=== PATIENT | female | born 1990 | race Caucasian/White ===

== ENCOUNTER 2017-01-07 07:47 | Emergency (ER) | payer OTHER ==
[2017-01-07 08:07] VITALS: BP 117/77
--- NOTE | 2017-01-07 08:16 | UC ---
Throat Pain/Nasal Marcos HPI - HPI Summary HPI Summary: SINUS PAIN AND PRESSURE X 1 WEEK , + NASAL CONGESTION , PND, GREEN NASAL DISCHARGE, LEFT EAR PAIN NO FEVER, NO CHILLS, NO COUGH - History of Current Complaint Chief Complaint: UCRespiratory Stated Complaint: SINUS,EAR PAIN Time Seen by Provider: 01/07/17 08:09 Hx Obtained From: Patient Hx Last Menstrual Period: unknown ?: No Onset/Duration: Gradual Onset, Lasting Days - 7, Still Present Severity: Moderate Cough: None Associated Signs & Symptoms: Positive: Sinus Discomfort, Nasal Discharge. Negative: Dysphagia, FB Sensation, Drooling, Wheezing, Hoarseness, Fever, Vomiting, Rash - Allergies/Home Medications Allergies/Adverse Reactions: Allergies Allergy/AdvReac Type Severity Reaction Status Date / Time No Known Allergies Allergy Verified 01/07/17 08:01 Home Medications: Home Medications Dextromethorphan-Phenylephrine [Daytime Multi Symptom Col] 1 cap PO ONCE PRN [History Confirmed 01/07/17] Ibuprofen [Advil] 400 mg PO ONCE PRN 01/07/17 [History Confirmed 01/07/17] Levonorgestrel (Iud) [Mirena IUD] 20 mcg IU ONCE 01/07/17 [History Confirmed ] guaiFENesin ER TAB [Mucinex*] 600 mg PO BID PRN 01/07/17 [History Confirmed ] PMH/Surg Hx/FS Hx/Imm Hx Previously Healthy: Yes - Surgical History Surgical History: None - Family History Known Family History: Negative: Diabetes - Social History Alcohol Use: Occasionally Substance Use Type: None Smoking Status (MU): Never Smoked Tobacco Review of Systems Constitutional: Negative Skin: Negative Eyes: Negative ENT: Ear Ache, Nasal Discharge, Sinus Congestion Respiratory: Negative Cardiovascular: Negative All Other Systems Reviewed And Are Negative: Yes Physical Exam Triage Information Reviewed: Yes Appearance: Well-Appearing, No Pain Distress, Well-Nourished Vital Signs: Initial Vital Signs Temp 98.3 F 01/07/17 08:02 Pulse 90 01/07/17 08:02 Resp 16 01/07/17 08:02 BP 117/77 01/07/17 08:02 Pulse Ox 97 01/07/17 08:02 Vital Signs Reviewed: Yes Eye Exam: Normal Eyes: Positive: Conjunctiva Clear ENT: Positive: Normal ENT inspection, Hearing grossly normal, Pharyngeal erythema, Nasal congestion, Nasal drainage, TM red - LEFT EAR. Negative: Tonsillar swelling, Tonsillar exudate Neck: Positive: Supple, Nontender, No Lymphadenopathy Respiratory: Positive: Chest non-tender, Lungs clear, Normal breath sounds Cardiovascular: Positive: RRR, No Murmur, Pulses Normal Abdominal Exam: Normal Skin Exam: Normal Throat Pain/Nasal Course/Dx - Differential Dx/Diagnosis Provider Diagnoses: SINUSITIS. OTITS MEDIA LEFT EAR Discharge - Discharge Plan Condition: Stable Disposition: HOME Prescriptions: Amoxicillin/Clavulanate TAB* [Augmentin TAB 875*] 875 mg PO BID #20 tab Patient Education Materials: Sinusitis (ED), Otitis Media (ED) Additional Instructions: FOLLOW UP WITH YOUR PCP IN ONE WEEK IF NOT BETTER
== END 2017-01-07 08:18 | disposition home or self-care (01) ==
LOC: UCCORT 07:47
DX: H66.92 Otitis media, unspecified, left ear (principal); J32.9 Chronic sinusitis, unspecified
CPT/HCPCS: 99202; G0463

== ENCOUNTER 2017-01-09 16:32 | Emergency (ER) | payer OTHER ==
[2017-01-09 17:27] VITALS: BP 112/75
--- NOTE | 2017-01-09 18:50 | UC ---
Throat Pain/Nasal Marcos HPI - HPI Summary HPI Summary: ears just as bad as they were two days ago and a little worse ----has stopped all medications for sx relief - History of Current Complaint Chief Complaint: UCGeneralIllness Stated Complaint: RE-CK,SINUSES,EARS Time Seen by Provider: 01/09/17 18:44 Hx Obtained From: Patient Hx Last Menstrual Period: IUD ?: No Onset/Duration: Gradual Onset, Lasting Days, Still Present, Worse Since - past 2 days Severity: Moderate Pain Intensity: 8 Pain Scale Used: 0-10 Numeric Cough: Productive Associated Signs & Symptoms: Positive: Sinus Discomfort, Nasal Discharge - Allergies/Home Medications Allergies/Adverse Reactions: Allergies Allergy/AdvReac Type Severity Reaction Status Date / Time No Known Allergies Allergy Verified 01/09/17 17:21 PMH/Surg Hx/FS Hx/Imm Hx Previously Healthy: Yes - Surgical History Surgical History: None - Family History Known Family History: Negative: Diabetes - Social History Occupation: Employed Full-time Lives: With Family Alcohol Use: Occasionally Substance Use Type: None Smoking Status (MU): Never Smoked Tobacco - Immunization History Most Recent Influenza Vaccination: 2016 Most Recent Tetanus Shot: UTD Most Recent Pneumonia Vaccination: N/A Review of Systems Constitutional: Negative Skin: Negative Eyes: Negative ENT: Sore Throat, Ear Ache, Nasal Discharge, Sinus Congestion Respiratory: Cough Cardiovascular: Negative Gastrointestinal: Negative Genitourinary: Negative Motor: Negative Neurovascular: Negative Musculoskeletal: Negative Neurological: Negative Psychological: Negative All Other Systems Reviewed And Are Negative: Yes Physical Exam Triage Information Reviewed: Yes Appearance: Well-Nourished, Ill-Appearing - mild, Pain Distress - mild Vital Signs: Initial Vital Signs Temp 98 F 01/09/17 17:22 Pulse 78 01/09/17 17:22 Resp 16 01/09/17 17:22 BP 112/75 01/09/17 17:22 Pulse Ox 99 01/09/17 17:22 Vital Signs Reviewed: Yes Eye Exam: Normal Eyes: Positive: Conjunctiva Clear ENT Exam: Normal ENT: Positive: Normal ENT inspection, Hearing grossly normal, Pharynx normal, Nasal congestion, Nasal drainage, TM bulging - b/l, TM red - b/l, Other: - canals red and swollen as well. Negative: Tonsillar swelling, Tonsillar exudate , Trismus, Muffled/hoarse voice Dental Exam: Normal Neck exam: Normal Neck: Positive: Supple, Nontender, No Lymphadenopathy Respiratory Exam: Normal Respiratory: Positive: Chest non-tender, Lungs clear, Normal breath sounds, No respiratory distress, No accessory muscle use Cardiovascular Exam: Normal Cardiovascular: Positive: RRR, No Murmur, Pulses Normal, Brisk Capillary Refill Musculoskeletal Exam: Normal Musculoskeletal: Positive: Strength Intact, ROM Intact, No Edema Neurological Exam: Normal Neurological: Positive: Alert, Muscle Tone Normal Psychological Exam: Normal Skin Exam: Normal Throat Pain/Nasal Course/Dx - Course Assessment/Plan: add ciprodex, otc sx relief and 3 days of afrin, increase fluids, rest follow with pcp - Differential Dx/Diagnosis Differential Diagnosis/HQI/PQRI: Laryngitis, Otitis Media, Peritonsillar Abscess , Pharyngitis, Sinusitis, URI Provider Diagnoses: B/l otitis externa, sinusitis Discharge - Discharge Plan Condition: Stable Disposition: HOME Prescriptions: Ciproflox/Dexameth OTIC.SUSP* [Ciprodex OTIC.SUSP*] 4 drop .SEE ORDER BID #1 [id number] Patient Education Materials: Oxymetazoline (Into the nose), Otitis Externa (ED) , How to Use Nasal [place] (ED) Referrals: [facility] [place] [facility] [Outside] - 5 Days
== END 2017-01-09 19:13 | disposition home or self-care (01) ==
LOC: UCCORT 16:32
DX: H60.93 Unspecified otitis externa, bilateral (principal); J32.9 Chronic sinusitis, unspecified
CPT/HCPCS: 99212; G0463